=== PATIENT | male | born 1990 | race Caucasian/White ===

== ENCOUNTER 2020-05-16 07:06 | Emergency (ER) | payer BC ==
[2020-05-16] MEDS ORDERED: Ondansetron 4 MG Tab.DIS PO ONE (07:22)
[2020-05-16] MEDS ORDERED: Ondansetron 4 MG Tab.DIS ONE (07:24)
[2020-05-16 08:06] LABS: CHLORIDE,CL 98 mmol/L (98-107); SODIUM,NA 137 mmol/L (136-145)
[2020-05-16] MEDS ORDERED: Sodium Chloride 0.9% 1,000 ML IV ONE ×2 (08:07→09:10)
[2020-05-16] MEDS ORDERED: Sodium Chloride 0.9% 10 ML Syringe FLUSH PRN (08:07)
[2020-05-16] MEDS ORDERED: Ondansetron 4 MG/2 ML SDV IVPUSH ONE (08:52)
[2020-05-16] MEDS ORDERED: Potassium Chloride 10 MEQ Tab.ER PO ONE ×2 (09:00→10:15)
--- NOTE | 2020-05-16 09:23 | EDM.PDOC ---
ED HPI GENERAL MEDICAL PROBLEM - General Chief Complaint: General Stated Complaint: Vomiting Time Seen by Provider: 05/16/20 07:30 Source of Information: Reports: Patient History Limitations: Reports: No Limitations - History of Present Illness INITIAL COMMENTS - FREE TEXT/NARRATIVE: Patient comes to ER with complaint of vomiting last three days. Reports approx 15 episodes or so daily on days 1 and 2. No fevers. No other accompanying symptoms or bowel changes. No one else sick at home. - Related Data Allergies Allergy/AdvReac Type Severity Reaction Status Date / Time No Known Allergies Allergy Verified 05/16/20 07:09 Home Meds: Home Meds Diphenhyd/Phenyleph/Acetaminop [Cold & Flu Relief Multi-Sym Lq] 10 ml PO Q6HR PRN 05/16/20 [History] Ondansetron [Zofran ODT] 4 mg PO Q6H PRN #15 tab.dis 05/16/20 [Rx] ED ROS GENERAL - Review of Systems Review Of Systems: See Below Constitutional: Reports: Malaise, Decreased Appetite. Denies: Fever, Chills, Night Sweats, Diaphoresis HEENT: Reports: No Symptoms Respiratory: Reports: No Symptoms Cardiovascular: Reports: No Symptoms GI/Abdominal: Reports: Decreased Appetite, Nausea, Vomiting. Denies: Abdominal Pain, Constipation, Diarrhea, Hematemesis, Hematochezia : Reports: No Symptoms Musculoskeletal: Reports: No Symptoms Skin: Reports: No Symptoms Neurological: Reports: No Symptoms Psychiatric: Reports: No Symptoms Hematologic/Lymphatic: Reports: No Symptoms ED EXAM, GENERAL - Physical Exam Exam: See Below Exam Limited By: No Limitations General Appearance: Alert, WD/WN, No Apparent Distress Eye Exam: Bilateral Eye: EOMI, PERRL Ears: Normal External Exam, Hearing Grossly Normal Nose: No: Nasal Deformity, Nasal Swelling, Nasal Drainage Throat/Mouth: Normal Lips, Normal Voice, No Airway Compromise Head: Atraumatic, Normocephalic Neck: Supple, Non-Tender, Full Range of Motion Respiratory/Chest: No Respiratory Distress, Lungs Clear, Normal Breath Sounds, No Accessory Muscle Use Cardiovascular: Normal Peripheral Pulses, Regular Rate, Rhythm, No Edema, No Murmur GI/Abdominal: Soft, Non-Tender, No Distention, Abnormal Bowel Sounds (decreased throughout) (Male) Exam: Deferred Rectal (Males) Exam: Deferred Back Exam: No: CVA Tenderness (L), CVA Tenderness (R) Extremities: Normal Range of Motion, Non-Tender, No Pedal Edema, Slow Capillary Refill Neurological: Alert, Oriented, CN II-XII Intact, Normal Cognition, Normal Gait, No Motor/Sensory Deficits Psychiatric: Normal Affect, Normal Mood Skin Exam: Warm, Dry, Intact, Normal Color Course - Vital Signs Last Recorded V/S: Last Vital Signs Temp 36.5 C 05/16/20 07:07 Pulse 70 05/16/20 07:07 Resp 16 05/16/20 07:07 BP 151/73 H 05/16/20 07:07 Pulse Ox 98 05/16/20 07:07 - Orders/Labs/Meds Orders: Active Orders 24 hr Category Date Time Status Saline Lock Insert [OM.PC] Routine Oth 05/16/20 08:07 Ordered Labs: Laboratory Tests 05/16/20 05/16/20 Range/Units 07:30 07:30 WBC 13.5 H (4.0-10.2) K/uL RBC 5.74 H (4.33-5.41) M/uL Hgb 17.4 H (13.1-16.8) g/dL Hct 49.7 H (39.0-49.0) % MCV 86.6 (84.0-98.0) fL MCH 30.3 (28.2-33.3) pg MCHC 35.0 (31.7-36.0) g/dL RDW 12.5 (11.2-14.1) % Plt Count 247 (150-350) K/uL Neut % (Auto) 81.9 H (45.0-80.0) % Lymph % (Auto) 11.5 (10.0-50.0) % Sequoyah % (Auto) 6.4 (2.0-14.0) % Eos % (Auto) 0.1 (0.0-5.0) % Baso % (Auto) 0.1 (0.0-2.0) % Neut # (Auto) 11.06 H (1.40-7.00) K/uL Lymph # (Auto) 1.55 (0.50-3.50) K/uL Sequoyah # (Auto) 0.86 (0.00-1.00) K/uL Eos # (Auto) 0.02 (0.00-0.50) K/uL Baso # (Auto) 0.02 (0.00-0.20) K/uL Sodium 137 (136-145) mmol/L Potassium 3.4 L (3.5-5.1) mmol/L Chloride 98 (98-107) mmol/L Carbon Dioxide 26.9 (21.0-32.0) mmol/L BUN 17 (7-18) mg/dL Creatinine 0.73 (0.51-1.17) mg/dL Est Cr Clr Drug Dosing TNP Estimated GFR (MDRD) > 60 mL/min Glucose 133 H (74-106) mg/dL Calcium 9.3 (8.5-10.1) mg/dL Total Bilirubin 0.6 (0.2-1.0) mg/dL AST 23 (15-37) U/L ALT 43 (12-78) U/L Alkaline Phosphatase 111 (46-116) IU/L Total Protein 8.0 (6.4-8.2) g/dL Albumin 4.4 (3.4-5.0) g/dL Meds: Medications Discontinued Medications Generic Name Dose Route Start Last Admin Trade Name Freq PRN Reason Stop Dose Admin Sodium Chloride 1,000 mls @ 999 mls/hr 05/16/20 08:07 05/16/20 08:30 Normal Saline IV 05/16/20 09:07 999 mls/hr .BOLUS ONE Administration Sodium Chloride 1,000 mls @ 999 mls/hr 05/16/20 09:10 Normal Saline IV 05/16/20 10:10 .BOLUS ONE Ondansetron HCl 4 mg 05/16/20 07:22 05/16/20 07:28 Zofran Odt PO 05/16/20 07:23 4 mg ONETIME ONE Administration Ondansetron HCl Confirm 05/16/20 07:24 05/16/20 08:31 Zofran Odt Administered 05/16/20 07:25 Not Given Dose 4 mg .ROUTE .STK-MED ONE Ondansetron HCl 4 mg 05/16/20 08:52 05/16/20 08:59 Zofran IVPUSH 05/16/20 08:53 4 mg ONETIME ONE Administration Potassium Chloride 20 meq 05/16/20 09:00 05/16/20 08:31 Klor-Con 10 PO 05/16/20 09:01 20 meq ONETIME ONE Administration Potassium Chloride 20 meq 05/16/20 10:15 05/16/20 18:03 Klor-Con 10 PO 05/16/20 10:16 Not Given ONETIME ONE Sodium Chloride 10 ml 05/16/20 08:07 Saline Flush FLUSH ASDIRECTED PRN Keep Vein Open - Re-Assessments/Exams Free Text/Narrative Re-Assessment/Exam: Vital signs stable. Delayed capillary refill noted. Hgb elevated at 17.4 likely reflecting dehydration. WBC elevated at 13.5 No evidence of acute abdomen on physical exam. Patient overall appeared comfortable otherwise and was pain-free. IV fluids ordered. Patient refused second IV liter of NS. Zofran given for nausea. Rx for additional Zofran given at time of discharge. Patient did receive 1 PO dose of potassium (K minimally low at 3.4) but did eventually have another emesis so uncertain how much effect it had. He did not wish to wait long for the IV fluids as noted above and did not receive IV K as that would have slowed down the rate at which he would have received the fluids if any discomfort was encountered from the potassium infusion. He is to follow up as needed if further problems/return of symptoms encountered. Departure - Departure Time of Disposition: Disposition: Home, Self-Care 01 Condition: Good Clinical Impression: Dehydration Vomiting Qualifiers: Vomiting type: unspecified Vomiting Intractability: unspecified Nausea presence: with nausea Qualified Code(s): R11.2 - Nausea with vomiting, unspecified - Discharge Information *PRESCRIPTION DRUG MONITORING PROGRAM REVIEWED*: Not Applicable *COPY OF PRESCRIPTION DRUG MONITORING REPORT IN PATIENT KAI: Not Applicable Prescriptions: Ondansetron [Zofran ODT] 4 mg PO Q6H PRN #15 tab.dis PRN Reason: Nausea Instructions: Nausea and Vomiting, Adult, [id number], Nausea and Vomiting, Adult Referrals: PCP,None [Primary Care Provider] - Forms: ED Department Discharge Additional Instructions: See how you feel over the next 24 hours. Take the Zofran, one tab every 6 hours as needed for nausea. Follow-up appointment 05/17/20 arrive at 0815. Use the [place] entrance at the hospital clinic entrance. Sepsis Event Note (ED) - Evaluation Sepsis Screening Result: No Definite Risk - My Orders Last 24 Hours: My Active Orders 05/16/20 08:07 Saline Lock Insert [OM.PC] Routine - Assessment/Plan Last 24 Hours: My Active Orders 05/16/20 08:07 Saline Lock Insert [OM.PC] Routine
== END 2020-05-16 09:30 | disposition home or self-care (01) ==
LOC: LL.ED 07:06
DX: E86.0 Dehydration (principal); R11.2 Nausea with vomiting, unspecified
CPT/HCPCS: 36415; 80053; 85025; 96374; 99283; 99284-25; A9270-GY; J2405; J7030